=== PATIENT | female | born 1955 | race Caucasian/White ===

== ENCOUNTER → 2016-10-23 | Outpatient (CLI) | payer BC | LOC: LAB 14:27 | DX: G70.01 Myasthenia gravis with (acute) exacerbation (principal) | CPT/HCPCS: 36415; 84443 ==

== ENCOUNTER → 2022-03-12 | Outpatient (CLI) | payer OTHER | LOC: KOH-I 13:02 | DX: M25.571 Pain in right ankle and joints of right foot (principal); M79.672 Pain in left foot; M19.071 Primary osteoarthritis, right ankle and foot | CPT/HCPCS: 73610; 73630 ==